=== PATIENT | female | born 1945 | race Caucasian/White ===

== ENCOUNTER 2018-06-17 18:01 | Inpatient (IN) ==
[2018-06-17] MEDS ORDERED: SODIUM CHLORIDE MINI 0.9% IVPB SCH ×2 (21:00→21:30)
[2018-06-17] MEDS ORDERED: AMPICILLIN IVPB SCH ×2 (21:00→21:30)
[2018-06-17] MEDS ORDERED: 0.9 % Sodium Chloride Mini Bag 100 ML ONE (21:23)
[2018-06-18] MEDS: AMPICILLIN IVPB SCH ×4 (00:19→21:39)
[2018-06-18] MEDS: SODIUM CHLORIDE 0.9% IVPB SCH ×4 (00:19→21:39)
[2018-06-18] MEDS ORDERED: Furosemide 20 MG/2 ML VIAL IVP ONE (07:55)
[2018-06-18] MEDS: Furosemide 20 MG/2 ML VIAL IVP ONE ×2 (07:57→09:50)
--- NOTE | 2018-06-18 12:27 | Internal Med History&Physical ---
Date of Encounter: 06/18/18 Time of Encounter: 12:27 Internal Medicine - H&P: HPI Chief complaint: admitted for blood transfusion Admitted From: Long-term Nursing Facility Plans for Post Hospital Care: [facility] History of present illness: Ms. 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 Patient was subsequently transferred to alf. Patient is a poor historian. is at bedside who contributed to some history. Patient was sent to ER to get a transfusion however there was difficulty getting matching blood transfusion for her. She was subsequently transferred to floor for admission until she gets blood transfusion. She denies any other symptoms. She is incontinent otherwise and has colostomy. Denies any shortness of breath chest pain or abdominal pain. Discussed CODE STATUS and patient wanted to be full code for short-term at this time if needed. Patient has wound after his surgery which had one infection per some alf records and currently on antibiotics. Past Med Surg Social Fam HX - Past Medical History Medical history: arthritis, cancer, diabetes, hyperlipidemia, hypertension, renal disease, other Additional medical history: osteopenia Psychiatric history: anxiety - Past Surgical History Surgical History: appendectomy, cancer surgery, cholecystectomy, hysterectomy Additional surgical history: Illeostomy Dr. Zuñiga at the [facility]. - Social History Smoking Status: Never smoker Smokeless Tobacco Status: No Alcohol use: none Drug use: none - Family History Mother Living Status: Hx Family Cardiac Disorders: Yes (HTN) Hx Family Cancer: Yes (breast) Hx Family Endocrine Disorder: Yes (DM) Hx Family Neurologic Disorders: Yes (Dementia) Father Living Status: Hx Family Cardiac Disorders: Yes Hx Family Endocrine Disorder: Yes (DM) Internal Medicine - H&P: Meds Atorvastatin Calcium [Lipitor] 40 mg PO DAILY 09/08/15 [History] Calcium Carbonate/Vitamin D3 [Calcium 600 + Vit D Softgel] 1 each PO DAILY 09/08/15 [History] Multivitamin [Multivitamins] 1 tab PO DAILY 09/08/15 [History] Paroxetine [Paxil] 20 mg PO DAILY 09/08/15 [History] Sitagliptin Phosphate [Januvia] 25 mg PO DAILY 09/08/15 [History] Nateglinide [Starlix] 60 mg PO BID 02/15/16 [History] Losartan [Cozaar] 25 mg PO DAILY 01/06/18 [History] Omeprazole [PriLOSEC] 40 mg PO DAILY #30 cap 03/06/18 [Rx] Albuterol Neb [AccuNeb] 1.25 mg IN Q4H PRN 06/18/18 [History] Ampicillin Sodium 2.5 gm IV QID 06/18/18 [History] Aspirin Enteric Coated [Aspirin EC] 81 mg PO DAILY 06/18/18 [History] Ertapenem [INVanz] 1,000 mg IVPB DAILY 06/18/18 [History] Ondansetron HCl [Zofran] 4 mg PO Q4H PRN 06/18/18 [History] Oxycodone HCl [Roxybond] 5 mg PO Q3H PRN 06/18/18 [History] Pioglitazone HCl [Actos] 45 mg PO DAILY 06/18/18 [History] glipiZIDE [Glipizide] 10 mg PO BID 06/18/18 [History] Allergy/AdvReac Type Severity Reaction Status Date / Time No Known Allergies Allergy Verified 03/24/18 13:03 All Systems PM: A 10-system review of systems was performed and is negative for pertinent findings except as documented above in the HPI. - Constitutional Vitals: Temp Pulse Resp BP Pulse Ox 98 F 91 16 116/74 96 06/18/18 11:51 06/18/18 11:51 06/18/18 11:51 06/18/18 11:51 06/18/18 11:51 Exam: General: In no acute distress. Conversant. Obese. Respiratory exam: CTAB. no accessory muscle use, rales, rhonchi, wheezes Cardiovascular exam: RRR, +S1, +S2. no murmur, gallop, rubs. no pedal edema. GI/Abdominal exam: Non-tender, Non-distended, with colostomy with fecal material, [place]line abdominal scar with bandage one. Neurological exam: CN II-XII intact, AO X3, no focal deficits. no pronater drift, facial droop, speech deficit - Assessment and plan (1) Anemia Current Visit: Yes Status: Acute Assessment and plan: - Patient was initially sent to have PRBC and to be discharged. However given it would be a while to get matching PRBC per blood bank will keep under observation. - Patient to receive 2 PRBC - Is chronic likely secondary to chemotherapy and iron deficiency Qualifiers: Anemia type: unspecified type Qualified Code(s): D64.9 - Anemia, unspecified (2) CKD (chronic kidney disease), stage III Current Visit: No Status: Acute Assessment and plan: - Mild worsening in renal function recently - to get PRBC. Hold KOFI/ARB if talking at home. - Will monitor for now (3) Diabetes Current Visit: Yes Status: Acute Assessment and plan: - Keep patient on insulin sliding scale and Accu-Cheks. - Hold home OHA for now. Qualifiers: Qualified Code(s): E11.9 - Type 2 diabetes mellitus without complications (4) HTN (hypertension) Current Visit: Yes Status: Acute Assessment and plan: - BP stable but on low end - Will hold BP medication and resume as BP tolerates. Qualifiers: Hypertension type: essential hypertension Qualified Code(s): I10 - Essential (primary) hypertension (5) Wound infection after surgery Current Visit: Yes Status: Acute Assessment and plan: - continue antibiotics which was previously ongoing ampicillin and ertapenman for klebsiella and enterococcus fecalis. (6) Hyperkalemia Current Visit: Yes Status: Acute Assessment and plan: - recent blood work with borderline elevated potassium - Repeat bmp - monitor for now - Time Spent With Patient Total time spent is greater than 50% in coordination of care (as documented) at patient's floor/unit and/or counseling patient:
[2018-06-18] MEDS ORDERED: Dextrose Gel 15 GM/37.5 ML TUBE PO PRN ×2 (12:28)
[2018-06-18] MEDS ORDERED: D5% in Water 1,000 ML IVC PRN (12:28)
[2018-06-18] MEDS ORDERED: *HR* Dextrose 50 % in Water (Syg) 50 ML SYRINGE IVP PRN (12:28)
[2018-06-18] MEDS ORDERED: Ondansetron ODT 4 MG TAB.RAPDIS PO PRN (13:00)
[2018-06-18] MEDS ORDERED: Albuterol Neb 1.25 MG/3 ML VIAL IH PRN (13:00)
[2018-06-18] MEDS: Aspirin Enteric Coated 81 MG Tablet PO SCH (15:28)
[2018-06-18] MEDS: Insulin LISPRO 300 UNITS/3 ML VIAL SQ SCH ×2 (15:29→17:48)
[2018-06-18] MEDS: Ampicillin 2 GM in 0.9 % Sodium Chloride Mini Bag 100 ML IVPB SCH ×2 (17:02→23:11)
[2018-06-18] MEDS ORDERED: 0.9 % Sodium Chloride 250 ML ONE (18:52)
[2018-06-18] MEDS ORDERED: Insulin LISPRO 300 UNITS/3 ML VIAL SQ SCH (21:00)
[2018-06-19] MEDS ORDERED: 0.9 % Sodium Chloride 250 ML ONE (01:12)
[2018-06-19] MEDS ORDERED: Ampicillin 2 GM in 0.9 % Sodium Chloride Mini Bag 100 ML IVPB SCH ×2 (05:00→18:00)
[2018-06-19 07:07] LABS: Basophils % 0.3 %; Eosinophils # 0.2 K/mcL (0.0-0.6); Eosinophils % 1.7 %; Hematocrit 36.9 % (35.3-44.9); Immature Granulocytes % 1.5 % (0-4); Lymphocytes # 0.9 K/mcL (0.6-4.6); Mean Corpuscular HGB Conc 30.9 g/dL (31.6-35.5); Mean Corpuscular Hemoglobin 25.9 pg (28.0-33.3); Mean Corpuscular Volume 83.9 fL (83.0-100.0); Mean Platelet Volume 8.7 fL (9.4-12.4); Monocytes # 0.7 K/mcL (0.0-1.3); Monocytes % 7.2 %; Neutrophils # 7.9 K/mcL (1.6-8.9); Nucleated Red Blood Cells 0.3 /100 WBC (0); Platelet Count 381 K/mcL (140-400); Red Cell Distribution Width 16.8 % (11.5-14.5); Segmented Neutrophils % 80.3 %
[2018-06-19 07:18] LABS: Hemoglobin 11.4 g/dL (11.5-15.4)
[2018-06-19 07:26] LABS: Calcium 8.9 mg/dL (8.6-10.3); Potassium 6.2 mEq/L (3.5-5.1)
[2018-06-19] MEDS: Insulin LISPRO 300 UNITS/3 ML VIAL SQ SCH ×2 (07:59→12:24)
[2018-06-19] MEDS: Aspirin Enteric Coated 81 MG Tablet PO SCH (07:59)
--- NOTE | 2018-06-19 08:05 | Event Note ---
Date of Encounter: 06/19/18 Time of Encounter: 08:01 Patient was seen and examined. 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 She was admitted to get blood transfusions from a [facility]. Hemoglobin this morning is 11.4. Couple days ago on 06/17/18 it was 8.4. Earlier this month was 7.2. Other labs today were remarkable for potassium of 6.2 inches up from labs on 06/17/2018 which showed a potassium of 5.3. Her kidney function seems to have worsened as well. Creatinine is 4.42 BUN of 77 with previous lab on 06/17/2018 showing a creatinine of 1.49 and prior to that on 06/13/2018 a creatinine of 1.02. The patient follows with the [facility]. No chemo initiated yet but from what the is saying there is plans for that. She is on IV ampicillin being treated for an abdominal infection post op. They are not sure who is following for that. She is barely making urine overnight. She has had no abdominal pain but surgical area seems erythematous and nursing staff tells me there was some drainage as well. ostomy noted with normal color stools. GEN: NAD CVS: RRR. S1, S2, No m/r/g RESP: CTAB ABD: Soft, obses. surgical area noted with some minimal surrounding erythema. ostomy with normal colored stools EXT: No edema. 2+ DP. No rashes NEURO: Nonfocal Patient will need to be transferred to [facility]. We will give Kayexalate now and check an EKG given hyperkalemia. Repeat labs in a couple hours while working on transfer. Hold nephrotoxins start gentle hydration with normal saline after 1 L bolus bladder scan Consult nephrology if patient is to stay here longer. c/w abx as is. Try to obtain records from [facility] if patient is to stay
--- NOTE | 2018-06-19 08:31 | Discharge Summary ---
<Alfredito Oates - Last Filed: 06/19/18 14:30> - NOTES TO OUTPATIENT PROVIDER Notes to Outpatient Provider: Patient adm for transfusion, found w/ severe oliguric KI + hyperkalemia. Got kayexelate. Transfer upon patient request. Orders not resulted at time of discharge: Pending orders 06/19/18 08:13 EKG [ECG 12 lead ECG] [ECG] Stat Date of Encounter: 06/19/18 Time of Encounter: 08:29 - Discharge Diagnosis (1) Hyperkalemia Priority: Primary Status: Acute (2) Anemia Priority: Primary Status: Acute Qualifiers: Anemia type: unspecified type Qualified Code(s): D64.9 - Anemia, unspecified (3) Diabetes Priority: Secondary Status: Acute Qualifiers: Qualified Code(s): E11.9 - Type 2 diabetes mellitus without complications (4) HTN (hypertension) Priority: Secondary Status: Acute Qualifiers: Hypertension type: essential hypertension Qualified Code(s): I10 - Essential (primary) hypertension (5) Wound infection after surgery Priority: Secondary Status: Acute (6) Acute kidney injury superimposed on chronic kidney disease Priority: Primary Status: Acute Hospital course: Ms. 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 Significantly, she does have a chronic wound infection for which she is being treated with IV ertapenem and ampicillin. The patient is a long-term resident at a group home, and essentially recently had blood work which demonstrated a hemoglobin of 8.4 on 06/17/18 leading to the patient being admitted for transfusion. Additionally, the patient was found to have a potassium of 5.3 at that time. She does have a known history of CKD, last known serum creatinine 1.49 on 06/17/18, with 1.02 on 06/13/18. This morning on labs, the patient was found to have a significant KI with serum creatinine 4.42, BUNs 77, and serum potassium 6.2. In addition of this, the patient did not make a significant amount of urine overnight, having reported only about 150 mL out overnight. We did get an EKG to rule out acute cardiac toxicity associate with this, attempted to give kayexelate but patient could not tolerate and vomited immediately. Nephrology was consulted for short term management pending transfer to [facility]. Given this sudden worsening overnight, the patient felt that she would be best served by transferring to the [facility] where she has received a majority of her treatment thus far. I have spoken with the transfer center and the patient has been accepted by Dr. Rey. She will remain in our care until that time receiving fluids. Discharge discussed with: patient, family, nurse, social work, case management, home sales consultant - Time Spent with Patient Total time spent providing and/or coordinating discharge services: - Discharge Medications Home Medications: RX: Atorvastatin Calcium [Lipitor] 40 mg PO DAILY 09/08/15 [History] RX: Calcium Carbonate/Vitamin D3 [Calcium 600 + Vit D Softgel] 1 each PO DAILY 09/08/15 [History] RX: Multivitamin [Multivitamins] 1 tab PO DAILY 09/08/15 [History] RX: Paroxetine [Paxil] 20 mg PO DAILY 09/08/15 [History] RX: Sitagliptin Phosphate [Januvia] 25 mg PO DAILY 09/08/15 [History] RX: Nateglinide [Starlix] 60 mg PO BID 02/15/16 [History] RX: Losartan [Cozaar] 25 mg PO DAILY 01/06/18 [History] RX: Omeprazole [PriLOSEC] 40 mg PO DAILY #30 cap 03/06/18 [Rx] RX: Albuterol Neb [AccuNeb] 1.25 mg IN Q4H PRN 06/18/18 [History] RX: Ampicillin Sodium 2.5 gm IV QID 06/18/18 [History] RX: Aspirin Enteric Coated [Aspirin EC] 81 mg PO DAILY 06/18/18 [History] RX: Ertapenem [INVanz] 1,000 mg IVPB DAILY 06/18/18 [History] RX: Ondansetron HCl [Zofran] 4 mg PO Q4H PRN 06/18/18 [History] RX: Oxycodone HCl [Roxybond] 5 mg PO Q3H PRN 06/18/18 [History] RX: Pioglitazone HCl [Actos] 45 mg PO DAILY 06/18/18 [History] RX: glipiZIDE [Glipizide] 10 mg PO BID 06/18/18 [History] Allergies/Adverse Reactions: Allergy/AdvReac Type Severity Reaction Status Date / Time No Known Allergies Allergy Verified 03/24/18 13:03 Date of admission: 06/18/18 10:19 Consults: 06/18/18 11:24 Consult to Nutrition [CONS] Routine Comment: Consulting Provider: NUTRITION Reason for Dietary Consult: MST Score Consult to Pastoral Services [CONS] Routine Comment: Discharging clinician: Alfredito Oates Anticipated date of discharge: 06/19/18 - Constitutional Vitals: Temp Pulse Resp BP Pulse Ox 98.3 F 85 15 106/70 96 06/19/18 05:44 06/19/18 05:44 06/19/18 05:44 06/19/18 05:44 06/19/18 05:44 Exam: Gen: Vitals noted. No acute distress. Patient appears fatigued Eyes: anicteric sclerae, moist conjunctivae; no lid-lag; Pupils equal and reactive to light HENT: Atraumatic; oropharynx clear with moist mucous membranes and no mucosal ulcerations; normal hard and soft palate Neck: Trachea midline; supple, no thyromegaly or lymphadenopathy Cardiac: RRR, no murmur, +S1/S2 Pulmonary: Coarse lung sounds b/l but no obvious wheezes, rales, rhonchi. Abdomen: soft, nontender, no guarding. Colostomy in place with normal appearing stool. Incision appears normal with some erythematous skin surrounding but no purulent drainage noted. No masses or hepatosplenomegaly MSK: ROM intact, no joint swelling noted Extremities: no BLE edema, nontender calf, no cyanosis or clubbing Skin: Normal temperature, turgor and texture; no rash, ulcers or subcutaneous nodules Neuro: moves all extremities, no focal deficits. Psych: Depressed mood, flat affect. A&Ox3 - Patient Status Disposition: Transfer [facility] Condition: Serious Overall status at discharge: patient is not back to baseline - Discharge Instructions - Diet and Activity Activity: increase activity as tolerated Diet: other (renal diet or as directed per [facility]) <Kelly Pastrana - Last Filed: 06/19/18 20:26> Orders not resulted at time of discharge: Pending orders 06/19/18 08:13 EKG [ECG 12 lead ECG] [ECG] Stat Date of Encounter: 06/19/18 - Discharge Diagnosis (1) Anemia Status: Acute Qualifiers: Anemia type: unspecified type Qualified Code(s): D64.9 - Anemia, unspecified (2) Diabetes Status: Acute Qualifiers: Qualified Code(s): E11.9 - Type 2 diabetes mellitus without complications (3) HTN (hypertension) Status: Acute Qualifiers: Hypertension type: essential hypertension Qualified Code(s): I10 - Essential (primary) hypertension (4) Wound infection after surgery Status: Acute (5) Hyperkalemia Status: Acute (6) Acute kidney injury superimposed on chronic kidney disease Status: Acute Hospital course: Ms. Newman is a 72 year old female - Time Spent with Patient Total time spent providing and/or coordinating discharge services: Date of admission: 06/19/18 14:33 Consults: 06/18/18 11:24 Consult to Nutrition [CONS] Routine Comment: Consulting Provider: NUTRITION Reason for Dietary Consult: MST Score Consult to Pastoral Services [CONS] Routine Comment: 06/19/18 10:16 Consult to Nephrology [CONS] Routine Consulting Provider: Kidney Leilani/ORIMARCELA/IAIN/SCOTT Reason for Consult: KI Call Completed: Yes - Constitutional Vitals: Temp Pulse Resp BP Pulse Ox 97.6 F 80 16 111/71 99 06/19/18 16:58 06/19/18 16:58 06/19/18 16:58 06/19/18 16:58 06/19/18 16:58 - Attending Attestation I examined this patient and my medical decision-making was reviewed with the Resident Physician. I agree with the documented discharge as above. GEN: NAD CVS: RRR. S1, S2, No m/r/g RESP: CTAB ABD: obese. abdominal incision site with signs of erythema. mild tenderness in the epigastric area but no rebound. ostomy noted with normal color stools EXT: No edema. 2+ DP. No rashes NEURO: Nonfocal
[2018-06-19] MEDS ORDERED: 0.9 % Sodium Chloride 1,000 ML IVC ONE (08:35)
[2018-06-19] MEDS ORDERED: 0.9 % Sodium Chloride 1,000 ML IVC SCH (08:45)
[2018-06-19] MEDS ORDERED: Sodium Bicarbonate 75 MEQ in 0.45 % Sodium Chloride 1,000 ML IVC SCH ×2 (10:30→13:00)
[2018-06-19 16:21] LABS: Calcium 8.3 mg/dL (8.6-10.3); Potassium 5.6 mEq/L (3.5-5.1)
[2018-06-19 16:58] VITALS: BP 111/71
== END 2018-06-19 17:56 | disposition other institution (70) | DRG 683 ==
LOC: INFINJ 18:01 → 3ANU 18:01 → 3NENU 18:57 → 3ANU 06-18 09:51 → SUATTDRO 06-18 10:19 → UNDODISOB 06-19 17:56
PROVIDERS: ADMIT Internal Medicine; ATTEND Internal Medicine